=== PATIENT | male | born 1970 | race Caucasian/White ===

== ENCOUNTER 2016-10-26 19:00 | Emergency (ER) | payer MEDICAID ==
--- NOTE | 2016-10-26 19:14 | ED ---
General Adult HPI - General Chief complaint: Abdominal Pain Stated complaint: side pain Time Seen by Provider: 10/26/16 19:10 Source: patient, RN notes reviewed, old records reviewed Mode of arrival: ambulatory Limitations: no limitations - History of Present Illness Initial comments: This is a 46-year-old male VF reevaluation down pain. Patient is no medical history no surgical history. Patient is on his third day of abdominal pains left lower quadrant in patient localized to his left lower quadrant may be regarding up to his left rib cage.. Patient does have history of colonoscopy showed diverticulosis. No fevers no nausea no vomiting mild decreased appetite. No diarrhea no blood in his stool. - Related Data Home Medications Medication Instructions Recorded Confirmed No Known Home Medications [No 10/26/16 10/26/16 Known Home Medications] Allergies Allergy/AdvReac Type Severity Reaction Status Date / Time No Known Allergies Allergy Verified 10/26/16 19:18 Review of Systems ROS Statement: Those systems with pertinent positive or pertinent negative responses have been documented in the HPI. ROS Other: All systems not noted in ROS Statement are negative. Past Medical History Past Medical History: No Reported History History of Any Multi-Drug Resistant Organisms: None Reported Past Surgical History: No Surgical Hx Reported Past Psychological History: No Psychological Hx Reported Smoking Status: Never smoker Past Alcohol Use History: Occasional Past Drug Use History: None Reported General Exam Limitations: no limitations General appearance: alert, in no apparent distress Head exam: Present: atraumatic, normocephalic, normal inspection Eye exam: Present: normal appearance, PERRL, EOMI. Absent: scleral icterus, conjunctival injection, periorbital swelling ENT exam: Present: normal exam, mucous membranes moist Neck exam: Present: normal inspection. Absent: tenderness, meningismus, lymphadenopathy Respiratory exam: Present: normal lung sounds bilaterally. Absent: respiratory distress, wheezes, rales, rhonchi, stridor Cardiovascular Exam: Present: regular rate, normal rhythm, normal heart sounds. Absent: systolic murmur, diastolic murmur, rubs, gallop, clicks GI/Abdominal exam: Present: soft, tenderness (Left lower quadrant), normal bowel sounds. Absent: distended, guarding, rebound, rigid Extremities exam: Present: normal inspection, full ROM, normal capillary refill. Absent: tenderness, pedal edema, joint swelling, calf tenderness Back exam: Present: normal inspection Neurological exam: Present: alert, oriented X3, CN II-XII intact Psychiatric exam: Present: normal affect, normal mood Skin exam: Present: warm, dry, intact, normal color. Absent: rash Course Vital Signs 10/26/16 19:08 Temperature 98.6 F Pulse Rate 107 H Respiratory 18 Rate Blood Pressure 196/108 O2 Sat by Pulse 96 Oximetry - Reevaluation(s) Reevaluation #1: 10/26/16 20:42 Patient has History of colonoscopy showing positive diverticulosis Medical Decision Making - Medical Decision Making 46 male here for evaluation of a 4 quadrant bowel pain, mild nausea and decreased appetite no diarrhea no blood in the stool, patient has positive diverticulitis will be treated with antibiotics antiemetics and pain control discharged - Lab Data Result diagrams: 10/26/16 19:45 10/26/16 19:45 Lab Results 10/26/16 10/26/16 10/26/16 Range/Units 19:45 19:45 19:45 WBC 12.0 H (3.8-10.6) k/uL RBC 5.26 (4.30-5.90) m/uL Hgb 16.2 (13.0-17.5) gm/dL Hct 47.3 (39.0-53.0) % MCV 90.0 (80.0-100.0) fL MCH 30.9 (25.0-35.0) pg MCHC 34.4 (31.0-37.0) g/dL RDW 11.8 (11.5-15.5) % Plt Count 387 (150-450) k/uL Neutrophils % 69 % Lymphocytes % 21 % Monocytes % 7 % Eosinophils % 2 % Basophils % 0 % Neutrophils # 8.2 H (1.3-7.7) k/uL Lymphocytes # 2.5 (1.0-4.8) k/uL Monocytes # 0.8 (0-1.0) k/uL Eosinophils # 0.2 (0-0.7) k/uL Basophils # 0.1 (0-0.2) k/uL Sodium 138 (137-145) mmol/L Potassium 4.9 (3.5-5.1) mmol/L Chloride 101 (98-107) mmol/L Carbon Dioxide 26 (22-30) mmol/L Anion Gap 11 mmol/L BUN 13 (9-20) mg/dL Creatinine 1.09 (0.66-1.25) mg/dL Est GFR (MDRD) Af Amer >60 (>60 ml/min/1.73 sqM) Est GFR (MDRD) Non-Af >60 (>60 ml/min/1.73 sqM) Glucose 97 (74-99) mg/dL Plasma Lactic Acid Cole (0.7-2.0) mmol/L Calcium 9.5 (8.4-10.2) mg/dL Total Bilirubin 1.0 (0.2-1.3) mg/dL AST 26 (17-59) U/L ALT 32 (21-72) U/L Alkaline Phosphatase 84 (38-126) U/L Total Creatine Kinase 103 (55-170) U/L CK-MB (CK-2) 0.6 (0.0-2.4) ng/mL CK-MB (CK-2) Rel Index 0.6 Total Protein 7.7 (6.3-8.2) g/dL Albumin 4.5 (3.5-5.0) g/dL Amylase 59 (30-110) U/L Lipase 124 (23-300) U/L Urine Color Urine Appearance (Clear) Urine pH (5.0-8.0) Ur Specific [place] (1.001-1.035) Urine Protein (Negative) Urine Glucose (UA) (Negative) Urine Ketones (Negative) Urine Blood (Negative) Urine Nitrate (Negative) Urine Bilirubin (Negative) Urine Urobilinogen (<2.0) mg/dL Ur Leukocyte Esterase (Negative) Urine RBC (0-5) /hpf Urine WBC (0-5) /hpf Urine Mucus (None) /hpf 10/26/16 10/26/16 Range/Units 20:02 20:15 WBC (3.8-10.6) k/uL RBC (4.30-5.90) m/uL Hgb (13.0-17.5) gm/dL Hct (39.0-53.0) % MCV (80.0-100.0) fL MCH (25.0-35.0) pg MCHC (31.0-37.0) g/dL RDW (11.5-15.5) % Plt Count (150-450) k/uL Neutrophils % % Lymphocytes % % Monocytes % % Eosinophils % % Basophils % % Neutrophils # (1.3-7.7) k/uL Lymphocytes # (1.0-4.8) k/uL Monocytes # (0-1.0) k/uL Eosinophils # (0-0.7) k/uL Basophils # (0-0.2) k/uL Sodium (137-145) mmol/L Potassium (3.5-5.1) mmol/L Chloride (98-107) mmol/L Carbon Dioxide (22-30) mmol/L Anion Gap mmol/L BUN (9-20) mg/dL Creatinine (0.66-1.25) mg/dL Est GFR (MDRD) Af Amer (>60 ml/min/1.73 sqM) Est GFR (MDRD) Non-Af (>60 ml/min/1.73 sqM) Glucose (74-99) mg/dL Plasma Lactic Acid Cole 0.8 (0.7-2.0) mmol/L Calcium (8.4-10.2) mg/dL Total Bilirubin (0.2-1.3) mg/dL AST (17-59) U/L ALT (21-72) U/L Alkaline Phosphatase (38-126) U/L Total Creatine Kinase (55-170) U/L CK-MB (CK-2) (0.0-2.4) ng/mL CK-MB (CK-2) Rel Index Total Protein (6.3-8.2) g/dL Albumin (3.5-5.0) g/dL Amylase (30-110) U/L Lipase (23-300) U/L Urine Color Yellow Urine Appearance Clear (Clear) Urine pH 5.5 (5.0-8.0) Ur Specific [place] 1.008 (1.001-1.035) Urine Protein Negative (Negative) Urine Glucose (UA) Negative (Negative) Urine Ketones Negative (Negative) Urine Blood Small H (Negative) Urine Nitrate Negative (Negative) Urine Bilirubin Negative (Negative) Urine Urobilinogen <2.0 (<2.0) mg/dL Ur Leukocyte Esterase Negative (Negative) Urine RBC 3 (0-5) /hpf Urine WBC 4 (0-5) /hpf Urine Mucus Rare H (None) /hpf - Radiology Data Radiology results: report reviewed (CT abdomen and pelvis is negative for acute disease), image reviewed Disposition Clinical Impression: Diverticulitis, Acute diverticulitis Disposition: HOME SELF-CARE Condition: Good Instructions: Diverticulitis (ED), Diverticulitis Diet (ED) Referrals: Jairon Webster DO [Primary Care Provider] - 1-2 days
[2016-10-26] MEDS ORDERED: SODIUM CHLORIDE 0.9% 1,000 ML IV STA (19:22)
[2016-10-26] MEDS ORDERED: ACETAMINOPHEN IV (For NPO) 1,000 MG in EMPTY BAG 1 BAG IVPB STA (19:22)
[2016-10-26] MEDS ORDERED: MORPHINE SULFATE 4 MG/ML SYRINGE IV STA (19:22)
[2016-10-26] MEDS ORDERED: RX INFO: IV CONTRAST WAS GIVEN 1 EACH MISC MISCELLANE PRN (19:22)
[2016-10-26 19:55] LABS: Basophils # (A) 0.1 k/uL (0-0.2); Basophils % (A) 0 %; CH 31.1; CHCM 34.6; Eosinophils # (A) 0.2 k/uL (0-0.7); Eosinophils % (A) 2 %; HCT 47.3 % (39.0-53.0); HDW 2.28; HGB 16.2 gm/dL (13.0-17.5); Luc # (Auto) 0.16; Luc % (Auto) 1; Lymphocytes # (A) 2.5 k/uL (1.0-4.8); Lymphocytes % (A) 21 %; MCH 30.9 pg (25.0-35.0); MCHC 34.4 g/dL (31.0-37.0); Mean Platelet Volume 6.9; Monocytes # (A) 0.8 k/uL (0-1.0); Monocytes % (A) 7 %; Neutrophils # (A) 8.2 k/uL (1.3-7.7); Neutrophils % (A) 69 %; RBC 5.26 m/uL (4.30-5.90); RDW 11.8 % (11.5-15.5); WBC (Perox) 11.64
[2016-10-26 20:03] LABS: ALT 32 U/L (21-72); AST 26 U/L (17-59); Alkaline Phosphatase 84 U/L (38-126); Amylase 59 U/L (30-110); Anion Gap 11 mmol/L; Blood Urea Nitrogen 13 mg/dL (9-20); Calcium 9.5 mg/dL (8.4-10.2); Carbon Dioxide 26 mmol/L (22-30); Chloride 101 mmol/L (98-107); Glucose 97 mg/dL (74-99); Non-African American GFR(MDRD) >60 (>60 ml/min/1.73 sqM); Potassium 4.9 mmol/L (3.5-5.1); Sodium 138 mmol/L (137-145); Total Protein 7.7 g/dL (6.3-8.2)
[2016-10-26 20:26] LABS: Creatine Kinase MB 0.6 ng/mL (0.0-2.4)
[2016-10-26 20:28] LABS: Appearance,Urine Clear (Clear); Bilirubin,Urine Negative (Negative); Glucose,Urine (UA) Negative (Negative); Ketones,Urine Negative (Negative); Leukocyte Esterase,Urine Negative (Negative); Mucus,Urine Rare /hpf; Nitrite,Urine Negative (Negative); PH, Urine 5.5 (5.0-8.0); Particle Count 848; Protein,Urine Negative (Negative); RBC,Urine 3 /hpf (0-5); Specific Gravity,Urine 1.008 (1.001-1.035); UA Billing (MACRO vs. MICRO) MICRO; Urobilinogen,Urine <2.0 mg/dL (<2.0); WBC,Urine 4 /hpf (0-5)
--- NOTE | 2016-10-26 20:39 | CT ---
EXAMINATION TYPE: CT abdomen pelvis w con DATE OF EXAM: 10/26/2016 8:28 PM COMPARISON: 04/22/2012 HISTORY: Pt states of left flank pain x3 days. CT DLP: 1601. mGycm Automated exposure control for dose reduction was used. TECHNIQUE: Helical acquisition of images was performed from the lung bases through the pelvis. CONTRAST: Performed without Oral Contrast and with IV Contrast, patient injected with 100 mL of Omnipaque 300. FINDINGS: There is mild subsegmental atelectasis the lung bases. Heart size is normal. Liver spleen pancreas gallbladder appear normal. Bile ducts are not dilated. There is no adrenal mass . Kidneys show satisfactory contrast opacification. There is no hydronephrosis. There is fat stranding around the mid descending colon. There is mild colon wall thickening. There is no evidence of an abscess. Appendix is not seen. There is no sign of appendicitis. Bladder is almost empty. There is no sign of a pelvic mass. IMPRESSION: THERE ARE INFLAMMATORY CHANGES IN THE MID DESCENDING COLON CONSISTENT WITH FOCAL COLITIS OR DIVERTICU LITIS. NO ABSCESS. MINIMAL SUBSEGMENTAL ATELECTASIS AT THE LUNG BASES. THE: CHANGES ARE NEW COMPARED TO OLD EXAM.
[2016-10-26] MEDS ORDERED: ONDANSETRON 4 MG/2 ML VIAL IVP STA (20:40)
[2016-10-26] MEDS ORDERED: CIPROFLOXACIN HCL 500 MG TAB PO STA (20:44)
[2016-10-26] MEDS ORDERED: metroNIDAZOLE 500 MG TAB PO STA (20:44)
[2016-10-26 21:03] VITALS: BP 134/76; PULSE 18; RESP 90; TEMP 97.7
== END 2016-10-26 21:03 | disposition home or self-care (01) ==
LOC: EC 19:00
DX: K57.92 Diverticulitis of intestine, part unspecified, without perforation or abscess without bleeding (principal); R11.0 Nausea
CPT/HCPCS: 36415; 80053; 82150; 82550; 82553; 83605; 83690; 85025; 81001; 87086; 74177; 99284; 96374; 96375 ×2; 96361; J2270; J2405; Q9967; J0131

== ENCOUNTER → 2019-06-03 | Outpatient (CLI) | payer MEDICAID ==
--- NOTE | 2019-06-04 09:30 | CT ---
EXAMINATION TYPE: CT abdomen pelvis w con DATE OF EXAM: 06/03/2019 COMPARISON: 10/26/2016 INDICATION: blood in stool DLP: 1054 mGycm, Automated exposure control for dose reduction was used. CONTRAST: 100 mL of Isovue 300. Study performed with Oral Contrast TECHNIQUE: Axial images were obtained from above the diaphragm to the pubic rami in the axial plane a t 5 mm thick sections. Reconstructed images are reviewed on the computer in the coronal plane. FINDINGS: Limited CT sections are obtained the lung bases. The lung bases are clear. CT ABDOMEN: Liver: There are couple small hypodensities within the liver too small to classify about the proximal cysts. Spleen: Normal Pancreas: Normal Adrenal glands: The adrenal glands are normal. Gallbladder: Normal Kidneys: No masses are evident. No hydronephrosis is present. No cysts are present. Delayed images were obtained through the kidneys, which remain unremarkable. Aorta: Vascular calcification is within the aorta. Inferior vena cava: Normal. CT PELVIS: There is diffuse thickening within the distal sigmoid colon and rectum. Some colitis should be consid ered. There are scattered diverticuli present without adjacent inflammatory changes compatible with d iverticulosis. Remaining loops of bowel distended with oral contrast. Unremarkable. There are loops o f bowel which are incompletely distended or lack oral contrast limiting their evaluation. Appendix: Not visualized. No suspicious inflammatory changes or dilated tubular structures are eviden t. Urinary bladder: Normal. Genitourinary structures: Prostate is normal. Osseous structures: No suspicious lytic or sclerotic lesions. IMPRESSIONS: 1. Diffuse thickening of the nondilated sigmoid colon wall extending towards the rectum. Correlate f or colitis. 2. Diverticulosis without acute diverticulitis.
== END | disposition home or self-care (01) ==
LOC: RADCTMAIN 15:51
PROVIDERS: ATTEND Family Medicine
DX: K57.90 Diverticulosis of intestine, part unspecified, without perforation or abscess without bleeding (principal); K63.89 Other specified diseases of intestine; K62.89 Other specified diseases of anus and rectum
CPT/HCPCS: 74177; Q9967

== ENCOUNTER 2019-07-23 11:24 | Day surgery (SDC) | payer MEDICAID ==
[2019-07-22 08:59] VITALS: BMI 25.0
[~2019-07-23 11:24] MED LIST: LACTATED RINGERS 1,000 ML IV SCH
[2019-07-23 11:53] VITALS: RESP 16; TEMP 97.6
[2019-07-23] MEDS ORDERED: LIDOCAINE 1% 20 ML VIAL (10MG/ML) FOR IV START INTRADERMA ONE (11:58)
[2019-07-23] MEDS ORDERED: LIDOCAINE 1% INJ 10MG/ML (20 ML MDV) ONE (13:03)
[2019-07-23] MEDS ORDERED: PROPOFOL 10 MG/ML 20 ML VIAL IV ONE (13:03)
--- NOTE | 2019-07-23 13:25 | P.PCN ---
Date of Procedure: 07/23/19 Procedure(s) Performed: BRIEF HISTORY: Patient is a 49-year-old pleasant white male scheduled for an elective colonoscopy as a part of evaluation of intermittent rectal bleeding and family history of colon cancer. PROCEDURE PERFORMED: Colonoscopy with snare polyp rectum. PREOPERATIVE DIAGNOSIS: Rectal bleeding and family history of colon cancer. IV sedation per Anesthesia. PROCEDURE: After informed consent was obtained, the patient, was brought into the endoscopy unit. IV sedation was administered by Anesthesia under continuous monitoring. Digital rectal examination was normal. Initially the Olympus CF-160 flexible video colonoscope was then inserted in the rectum, gradually advanced into the cecum without any difficulty. Careful examination was performed as the scope was gradually being withdrawn. Ileocecal valve and the appendiceal orifice were visualized and appeared normal. Prep was excellent. Mucosa of the cecum, ascending colon appeared normal. In the transverse colon there was a 5 mm polyp that was removed by snare polypectomy. In the sigmoid: There was another 5 mm polyp that was removed by snare polypectomy. Rest of the transverse colon, descending colon, sigmoid colon, and rectum appeared normal. Sigmoidal diverticulosis seen. Retroflexion was performed in the rectum and all internal hemorrhoids ere seen. The patient tolerated the procedure well. IMPRESSION: 5 mm transverse colon polyp status post polypectomy 5 mm sigmoid colon polyp status post polypectomy scattered sigmoid diverticulosis Small internal hemorrhoids RECOMMENDATIONS: Findings of this examination were discussed with the patient as well as his family. He was advised to follow with the biopsies as. If the biopsy shows an adenoma he can have a repeat colonoscopy in 3 years.
[2019-07-23 13:39] VITALS: BP 124/76; PULSE 86
== END 2019-07-23 14:20 | disposition home or self-care (01) ==
LOC: ORWHC2ENDO 11:24
PROVIDERS: ATTEND Internal Medicine Gastroenterology
DX: D12.5 Benign neoplasm of sigmoid colon (principal); Z80.0 Family history of malignant neoplasm of digestive organs; K57.30 Diverticulosis of large intestine without perforation or abscess without bleeding; K64.8 Other hemorrhoids; K21.9 Gastro-esophageal reflux disease without esophagitis
CPT/HCPCS: 88305; 45385; J2001; J2704

== ENCOUNTER 2022-11-15 18:48 | Emergency (ER) | payer MEDICAID, OTHER ==
--- NOTE | 2022-11-15 20:08 | XR ---
PROCEDURE: XR tibia fibula RT - 2V DATE AND TIME: 11/15/2022 7:57 PM CLINICAL INDICATION: PHH; pain/injury TECHNIQUE: AP and lateral views from the knee to ankle. COMPARISON: None FINDINGS: There is no fracture or malalignment. The soft tissues are unremarkable. IMPRESSION: No acute radiographic process.
[2022-11-15] MEDS ORDERED: DIPH,PERTUS(ACELL)TETVAC-LF 0.5 ML VIAL IM ONE (20:16)
[2022-11-15] MEDS ORDERED: LIDOCAINE 1% INJ 10MG/ML (30 ML VIAL-PF) SQ ONE (20:17)
--- NOTE | 2022-11-15 20:48 | ED ---
General Adult HPI - General Chief complaint: Extremity Injury, Lower Stated complaint: [facility]-rt knee injury Time Seen by Provider: 11/15/22 19:44 Source: patient Mode of arrival: ambulatory - History of Present Illness Initial comments: Patient is a 52-year-old male who presents to the emergency department for injury to right trotter. Patient was working with a 2 work which slipped and hit his right trotter. Patient has laceration to right trotter with minimal bleeding. He denies any significant pain. Last tetanus unknown - Related Data Home Medications Medication Instructions Recorded Confirmed No Known Home Medications 07/22/19 07/23/19 Allergies Allergy/AdvReac Type Severity Reaction Status Date / Time No Known Allergies Allergy Verified 11/15/22 19:20 Review of Systems ROS Statement: Those systems with pertinent positive or pertinent negative responses have been documented in the HPI. ROS Other: All systems not noted in ROS Statement are negative. Past Medical History Past Medical History: No Reported History Additional Past Medical History / Comment(s): ABD. PAIN, AND SOME RECTAL BLEEDING WITH FATIGUE AND NO APPETITE-CT SCAN SHOWED SOME INFLAMMATION IN COLON History of Any Multi-Drug Resistant Organisms: None Reported Past Surgical History: Heart Catheterization Additional Past Surgical History / Comment(s): COLONOSCOPY. VASECTOMY Past Anesthesia/Blood Transfusion Reactions: Motion Sickness Past Psychological History: No Psychological Hx Reported Smoking Status: Never smoker Past Alcohol Use History: Occasional Past Drug Use History: None Reported - Past Family History Father Family Medical History: Cancer General Exam General appearance: alert, in no apparent distress Head exam: Present: atraumatic, normocephalic, normal inspection Respiratory exam: Present: normal lung sounds bilaterally. Absent: respiratory distress, wheezes, rales, rhonchi, stridor Cardiovascular Exam: Present: regular rate, normal rhythm, normal heart sounds. Absent: systolic murmur, diastolic murmur, rubs, gallop, clicks Extremities exam: Present: other (2 cm laceration to right middle trotter without any surrounding swelling or bruising.) Neurological exam: Present: alert, oriented X3, CN II-XII intact Psychiatric exam: Present: normal affect, normal mood Skin exam: Present: warm, dry, intact, normal color. Absent: rash Course Vital Signs 11/15/22 11/15/22 19:14 20:55 Temperature 98.3 F 97.4 F L Pulse Rate 85 78 Respiratory 18 16 Rate Blood Pressure 157/93 160/101 O2 Sat by Pulse 97 99 Oximetry Procedures - Laceration Laceration #1 Indication: laceration Site: lower extremity Size (cm): 2 Description: linear Anesthetic Used: lidocaine 1% Anesthesia Technique: local infiltration Pre-repair: wound explored, irrigated extensively Size of Sutures: 4-0 Number of Sutures: 3 Technique: simple, interrupted Patient Tolerated Procedure: well, no complications Medical Decision Making - Medical Decision Making Was pt. sent in by a medical professional or institution ([facility], MANAGING PARTNER, urgent care, hospital, or senior living...) When possible be specific @ -No Did you speak to anyone other than the patient for history (EMS, parent, family, police, friend...)? What history was obtained from this source @ -No Did you review nursing and triage notes (agree or disagree)? Why? @ -I reviewed and agree with nursing and triage notes Were old charts reviewed (outside hosp., previous admission, EMS record, old EKG, old radiological studies, urgent care reports/EKG's, senior living records)? Report findings @ -No old charts were reviewed Differential Diagnosis (chest pain, altered mental status, abdominal pain women, abdominal pain men, vaginal bleeding, weakness, fever, dyspnea, syncope, headache, dizziness, GI bleed, back pain, seizure, CVA, palpatations, mental health)? @ -Laceration, abrasion, fracture, contusion EKG interpreted by me (3pts min.). @ -As above X-rays interpreted by me (1pt min.). @Yes, right tibia-fibula x-ray negative for acute process CT interpreted by me (1pt min.). @ -None done U/S interpreted by me (1pt. min.). @ -None done What testing was considered but not performed or refused? (CT, X-rays, U/S, labs)? Why? @ -None What meds were considered but not given or refused? Why? @ -None Did you discuss the management of the patient with other professionals (professionals i.e. [facility], MANAGING PARTNER, lab, RT, psych nurse, long term care social worker, certified breastfeeding educator, teacher, chief revenue officer, rn case manager hospice)? Give summary @ -No Was smoking cessation discussed for >3mins.? @ -No Was critical care preformed (if so, how long)? @ -No Were there social determinants of health that impacted care today? How? (Homelessness, low income, unemployed, alcoholism, drug addiction, transportation, low edu. Level, literacy, decrease access to med. care, care home, rehab)? @ -No Was there de-escalation of care discussed even if they declined (Discuss DNR or withdrawal of care, Hospice)? DNR status @ -No What co-morbidities impacted this encounter? (DM, HTN, Smoking, COPD, CAD, Cancer, CVA, ARF, Chemo, Hep., AIDS, mental health diagnosis, sleep apnea, morbid obesity)? @ -None Was patient admitted / discharged? Hospital course, mention meds given and route, prescriptions, significant lab abnormalities, going to OR and other pertinent info. @ - Patient presenting with right trotter injury. Patient has small laceration which was irrigated extensively well approximated with 3 sutures. X-ray negative for acute process. Tetanus updated. Undiagnosed new problem with uncertain prognosis? @ -No Drug Therapy requiring intensive monitoring for toxicity (Heparin, Nitro, Insulin, Cardizem)? @ -No] Were any procedures done? @ -yes, lac repair Diagnosis/symptom? @ -right trotter injury, laceration Acute, or Chronic, or Acute on Chronic? @ -acute Uncomplicated (without systemic symptoms) or Complicated (systemic symptoms)? @ -uncomplicated Side effects of treatment? @ -[No] Exacerbation, Progression, or Severe Exacerbation? @ -[No] Poses a threat to life or bodily function? How? (Chest pain, [place], NV, pneumonia, PE, COPD, DKA, ARF, appy, cholecystitis, CVA, Diverticulitis, Homicidal, Suicidal, threat to staff... and all critical care pts) @ -[No] Dr. Xavier is my attending Disposition Clinical Impression: Laceration, Injury of right trotter Disposition: HOME SELF-CARE Condition: Good Instructions (If sedation given, give patient instructions): Care For Your Stitches (ED), Laceration (ED) Additional Instructions: Leave wound uncovered. Keep wound clean and dry. Wash with a mild soap. Take Tylenol or anti-inflammatories such as Motrin for pain. Follow-up with primary care provider in 1-2 days. Return for suture removal in 7-10 days. Report back to the emergency department if you experience new, concerning, or worsening symptoms. Is patient prescribed a controlled substance at d/c from ED?: No Referrals: None,Stated [Primary Care Provider] - 1-2 days Time of Disposition: 20:47
[2022-11-15 21:09] VITALS: BP 160/101; PULSE 78; RESP 16; TEMP 97.4
== END 2022-11-15 20:55 | disposition home or self-care (01) ==
LOC: EC 18:48
DX: S81.811A Laceration without foreign body, right lower leg, initial encounter (principal); Z23 Encounter for immunization; W27.8XXA Contact with other nonpowered hand tool, initial encounter; Y99.0 Civilian activity done for income or pay
CPT/HCPCS: 73590; 90715; 99283; 90471; 12001; J2001

== ENCOUNTER 2024-07-30 23:54 | Emergency (ER) | payer OTHER ==
[2024-07-30 23:59] VITALS: RESP 18
--- NOTE | 2024-07-31 01:18 | ED ---
ENT HPI - General Chief complaint: ENT Stated complaint: Nose Bleed Time Seen by Provider: 07/31/24 00:08 Source: patient, RN notes reviewed Mode of arrival: ambulatory Limitations: no limitations - History of Present Illness Initial comments: This is a 54-year-old male with no significant past medical history presenting to the emergency department for chief complaint of a nosebleed that occurred approximately 1 hour prior to arrival. States that yesterday similar event occurred however was able to contain bleeding after approximately 10 minutes of pressure. States that he has been attempting to apply pressure however bleeding is continued. He denies history of clotting disorders, easy bruising, gingival bleeding. He denies headaches, dizziness, shortness of breath, chest pain, difficulty breathing. - Related Data Home Medications Medication Instructions Recorded Confirmed No Known Home Medications 07/22/19 07/23/19 Allergies Allergy/AdvReac Type Severity Reaction Status Date / Time No Known Allergies Allergy Verified 07/30/24 23:56 Review of Systems ROS Statement: Those systems with pertinent positive or pertinent negative responses have been documented in the HPI. ROS Other: All systems not noted in ROS Statement are negative. Past Medical History Past Medical History: No Reported History Additional Past Medical History / Comment(s): ABD. PAIN, AND SOME RECTAL BLEEDING WITH FATIGUE AND NO APPETITE-CT SCAN SHOWED SOME INFLAMMATION IN COLON History of Any Multi-Drug Resistant Organisms: None Reported Past Surgical History: Heart Catheterization Additional Past Surgical History / Comment(s): COLONOSCOPY. VASECTOMY Past Anesthesia/Blood Transfusion Reactions: Motion Sickness Past Psychological History: No Psychological Hx Reported Smoking Status: Never smoker Past Alcohol Use History: Occasional Past Drug Use History: None Reported - Past Family History Father Family Medical History: Cancer General Exam Limitations: no limitations General appearance: alert, in no apparent distress ENT exam: Present: other (left nare epistaxis with dried coagulation of blood at nares) Neck exam: Present: normal inspection. Absent: tenderness, meningismus, lymphadenopathy Respiratory exam: Present: normal lung sounds bilaterally. Absent: respiratory distress, wheezes, rales, rhonchi, stridor Cardiovascular Exam: Present: regular rate, normal rhythm, normal heart sounds. Absent: systolic murmur, diastolic murmur, rubs, gallop, clicks GI/Abdominal exam: Present: soft, normal bowel sounds. Absent: distended, tenderness, guarding, rebound, rigid Course Vital Signs 07/30/24 07/31/24 23:56 01:34 Temperature 97.9 F 98.2 F Pulse Rate 130 H 88 Respiratory 18 18 Rate Blood Pressure 176/100 157/95 O2 Sat by Pulse 97 100 Oximetry Medical Decision Making - Medical Decision Making Was pt. sent in by a medical professional or institution (, [facility], [employer], urgent care, hospital, or fdc...) When possible be specific @ -No Did you speak to anyone other than the patient for history (EMS, parent, family, police, friend...)? What history was obtained from this source @ -No Did you review nursing and triage notes (agree or disagree)? Why? @ -I reviewed and agree with nursing and triage notes Were old charts reviewed (outside hosp., previous admission, EMS record, old EKG, old radiological studies, urgent care reports/EKG's, fdc records)? Report findings @ -No old charts were reviewed Differential Diagnosis (chest pain, altered mental status, abdominal pain women, abdominal pain men, vaginal bleeding, weakness, fever, dyspnea, syncope, headache, dizziness, GI bleed, back pain, seizure, CVA, palpatations, mental health, musculoskeletal)? @ -Epistaxis, nasal trauma, hypertension, bleeding disorder, this list not all inclusive EKG interpreted by me (3pts min.). @ -none X-rays interpreted by me (1pt min.). @ -None done CT interpreted by me (1pt min.). @ -None done U/S interpreted by me (1pt. min.). @ -None done What testing was considered but not performed or refused? (CT, X-rays, U/S, labs)? Why? @ -None What meds were considered but not given or refused? Why? @ -None Did you discuss the management of the patient with other professionals (professionals i.e. [facility], [employer], lab, RT, psych nurse, social work case manager, marine painter, teacher, operations officer trust department, rn case mgr)? Give summary @ -No Was smoking cessation discussed for >3mins.? @ -No Was critical care preformed (if so, how long)? @ -No Were there social determinants of health that impacted care today? How? (Homelessness, low income, unemployed, alcoholism, drug addiction, cason sportation, low edu. Level, literacy, decrease access to med. care, usp, rehab)? @ -No Was there de-escalation of care discussed even if they declined (Discuss DNR or withdrawal of care, Hospice)? DNR status @ -No What co-morbidities impacted this encounter? (DM, HTN, Smoking, COPD, CAD, Cancer, CVA, ARF, Chemo, Hep., AIDS, mental health diagnosis, sleep apnea, morbid obesity)? @ -None Was patient admitted / discharged? Hospital course, mention meds given and route, prescriptions, significant lab abnormalities, going to OR and other pertinent info. @ -Discharge. 54-year-old male presents emergency department with nosebleed. Patient noted to be hypertensive on arrival with blood pressure 176/100 heart rate of 130. On examination noted to have coagulation of dried blood of the l eft naris. Patient is provided with Afrin nasal spray. Reevaluation bleeding has ceased. He is provided with nasal clamps to take home and is instructed to follow-up with primary care provider with concern for hypertension. Discussed with Dr. Keys Undiagnosed new problem with uncertain prognosis? @ -No Drug Therapy requiring intensive monitoring for toxicity (Heparin, Nitro, Ins ulin, Cardizem)? @ -No Were any procedures done? @ -No Diagnosis/symptom? @ -Epistaxis Acute, or Chronic, or Acute on Chronic? @ -acute Uncomplicated (without systemic symptoms) or Complicated (systemic symptoms)? @ -uncomplicated Side effects of treatment? @ -No Exacerbation, Progression, or Severe Exacerbation? @ -No Poses a threat to life or bodily function? How? (Chest pain, [place], [place], pneumonia, PE, COPD, DKA, ARF, appy, cholecystitis, CVA, Diverticulitis, Homicidal, Suicidal, threat to staff... and all critical care pts) @ -No Disposition Clinical Impression: Epistaxis Disposition: HOME SELF-CARE Condition: Good Instructions (If sedation given, give patient instructions): Nosebleed (ED) Additional Instructions: Please return to the Emergency Department if symptoms worsen or any other concerns. You may only use Afrin strictly as needed every 12 hours for acute nosebleeds. Continue to apply pressure with provided nasal clamps. Recommend that you follow-up with primary care provider for further evaluation of elevated blood pressure. Is patient prescribed a controlled substance at d/c from ED?: No Referrals: Nonstaff,Physician [Primary Care Provider] - 1-2 days Time of Disposition: 01:17
[2024-07-31 01:34] VITALS: BP 157/95; PULSE 88; TEMP 98.2
[2024-07-31] MEDS: OXYMETAZOLINE 0.05% NASL SPRAY 1 SPRAY BOTTLE NASAL STA (01:34)
== END 2024-07-31 01:35 | disposition home or self-care (01) ==
LOC: EC 23:54
DX: R04.0 Epistaxis (principal)
CPT/HCPCS: 99283